=== PATIENT | male | born 1960 | race American Indian/Alaskan Native ===

== ENCOUNTER 2019-03-30 09:16 | Outpatient (CLI) | payer MEDICAID ==
[2019-03-30] MEDS ORDERED: XYLOCAINE TOPICAL 4% TP ONE (10:30)
== END 2019-03-30 09:17 | disposition home or self-care (01) ==
LOC: WOUND 09:16
PROVIDERS: ATTEND Surgery
DX: L89.319 Pressure ulcer of right buttock, unspecified stage (principal); L89.153 Pressure ulcer of sacral region, stage 3; I10 Essential (primary) hypertension; G82.22 Paraplegia, incomplete; R15.9 Full incontinence of feces; Z87.891 Personal history of nicotine dependence
CPT/HCPCS: 11042; 11045; G0463; 99205

== ENCOUNTER 2019-04-12 12:51 | Outpatient (CLI) | payer MEDICAID ==
[2019-04-12] MEDS ORDERED: XYLOCAINE TOPICAL 4% TP ONE (13:02)
[2019-04-12] MEDS ORDERED: SILVER NITRATE TP ONE (13:03)
== END 2019-04-12 12:52 | disposition home or self-care (01) ==
LOC: WOUND 12:51
PROVIDERS: ATTEND Surgery
DX: L89.319 Pressure ulcer of right buttock, unspecified stage (principal); L89.153 Pressure ulcer of sacral region, stage 3; I10 Essential (primary) hypertension; G82.22 Paraplegia, incomplete; R15.9 Full incontinence of feces; Z87.891 Personal history of nicotine dependence